=== PATIENT | female | born 2000 | race Caucasian/White ===

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

== ENCOUNTER 2024-06-30 11:41 | Emergency (ER) | payer OTHER ==
[~2024-06-30] VITALS: Ht 162.6 cm; Wt 59.1 kg
[~2024-06-30 11:41] MED LIST changes: +CIPR-249 PO; +ETON68IM SC; -NEXP1IMP SC
[2024-06-30 14:16] VITALS: TEMP 98.4
[2024-06-30] MEDS ORDERED: AMOX875T2 PO (17:00)
[2024-06-30] MEDS: AUGMENTIN 875 MG TAB PO ONE (17:12)
[2024-06-30 17:15] VITALS: BP 112/74; O2SAT 100
== END 2024-06-30 17:16 | disposition home or self-care (01) ==
LOC: M ED 11:41
DX: H66.91 Otitis media, unspecified, right ear (principal); Z88.6 Allergy status to analgesic agent

== ENCOUNTER 2024-09-17 01:52 | Emergency (ER) | payer OTHER ==
[~2024-09-17] VITALS: Ht 162.6 cm; Wt 61.6 kg
[~2024-09-17 01:52] MED LIST changes: +AMOX875T2 PO
[2024-09-17] MEDS: NS (Normal Saline) 0.9% 1,000 ML IV ONE (08:15)
[2024-09-17] MEDS: ONDANSETRON 4MG 2ML VIAL IV ONE (08:50)
[2024-09-17 09:05] LABS: BASO % 0.2 % (0.0-1.0); HEMATOCRIT 45.7 % (36.0-47.0); HEMOGLOBIN 16.2 g/dl (12.0-15.5); LYMPH # 0.4 10^3/uL (1.5-5.0); LYMPH % 3.2 % (24.0-44.0); MEAN CORPUSCULAR HEMOGLOBIN 31.8 pg (27.0-33.0); MEAN CORPUSCULAR HGB CONC 35.4 g/dl (32.0-36.5); MEAN CORPUSCULAR VOLUME 89.8 fl (80.0-96.0); MONO # 0.2 10^3/uL (0.0-0.8); MONO % 1.3 % (2.0-8.0); NEUTROPHILS % 94.8 % (36.0-66.0); PLATELET COUNT, AUTOMATED 299 10^3/uL (150-450); RED BLOOD COUNT 5.09 10^6/uL (4.00-5.40); WHITE BLOOD COUNT 12.7 10^3/uL (4.0-10.0)
[2024-09-17 09:37] LABS: LIPASE 24 U/L (12-53)
[2024-09-17 09:39] LABS: ALBUMIN 4.2 G/DL (3.2-5.2); ALKALINE PHOSPHATASE 74 U/L (35-104); ALT/SGPT 12 U/L (7.0-40); AST/SGOT 12 U/L (<34); BILIRUBIN,DIRECT 0.5 MG/DL (<0.4); BILIRUBIN,TOTAL 1.5 MG/DL (0.3-1.2); BLOOD UREA NITROGEN 19 MG/DL (9-23); CALCIUM LEVEL 9.4 MG/DL (8.5-10.1); CARBON DIOXIDE LEVEL 24 MMOL/L (20-31); CHLORIDE LEVEL 107 MMOL/L (98-107); CREATININE FOR GFR 0.82 MG/DL (0.55-1.30); GLOMERULAR FILTRATION RATE > 90.0 (>60); GLUCOSE, FASTING 123 MG/DL (60-100); POTASSIUM SERUM 4.5 MMOL/L (3.5-5.1); SODIUM LEVEL 140 MMOL/L (136-145); TOTAL PROTEIN 7.6 G/DL (5.7-8.2)
[2024-09-17] MEDS ORDERED: ISOVUE-370 76% 100ML VIAL As Ordered ONE (10:27)
[2024-09-17] MEDS ORDERED: ONDA-282 PO (11:19)
[2024-09-17 11:27] VITALS: BP 97/63; TEMP 96.8; O2SAT 99
== END 2024-09-17 10:30 | disposition home or self-care (01) ==
LOC: EDBD 01:52 → M ED 01:52
DX: R10.9 Unspecified abdominal pain (principal); R11.2 Nausea with vomiting, unspecified; R19.7 Diarrhea, unspecified; E80.7 Disorder of bilirubin metabolism, unspecified; R79.9 Abnormal finding of blood chemistry, unspecified; K21.9 Gastro-esophageal reflux disease without esophagitis; F17.200 Nicotine dependence, unspecified, uncomplicated; Z88.6 Allergy status to analgesic agent; Z79.83 Long term (current) use of bisphosphonates
CPT/HCPCS: 36415; 74177; 76705; 80048; 80076; 83690; 84702; 85025; 96361; 96374; 99284; J2405; Q9967